=== PATIENT | female | born 1955 | race Hispanic/Latino ===

== ENCOUNTER 2021-11-12 10:21 | Observation (INO) | payer OTHER ==
[~2021-11-12] VITALS: Ht 152.4 cm; Wt 57.5 kg
[2021-11-12 11:10] LABS: APPEARANCE,URINE CLEAR (CLEAR); BILIRUBIN,URINE NEGATIVE (NEGATIVE); COLOR,URINE YELLOW (YELLOW); GLUCOSE, URINE (UA) >=1000 mg/dL (NEGATIVE); KETONES,URINE 40 mg/dL (NEGATIVE); LEUKOCYTE ESTERASE ,URINE NEGATIVE (NEGATIVE); NITRATE,URINE NEGATIVE (NEGATIVE); OCCULT BLOOD,URINE TRACE-INTACT (NEGATIVE); PH,URINE 5.5 (5.0-8.0); PROTEIN,URINE NEGATIVE (NEGATIVE); UROBILINOGEN,URINE 0.2 mg/dL (0.2-1.0)
[2021-11-12 11:13] LABS: BASOPHILS % (AUTO) 0.5 % (0.0-5.0); EOSINOPHILS % (AUTO) 0.5 % (0.0-8.0); HEMATOCRIT 42.2 % (36-48); LYMPHOCYTES % (AUTO) 25.7 % (21.0-51.0); MEAN CORPUSCULAR HEMOGLOBIN 28.7 pg (27.0-33.0); MEAN CORPUSCULAR HGB CONC 33.4 g/dL (32.0-36.0); MEAN CORPUSCULAR VOLUME 85.8 fL (79-99); MONOCYTES % (AUTO) 7.9 % (3.0-13.0); NEUTROPHILS % (AUTO) 65.1 % (40.0-77.0); PLATELET COUNT (AUTO) 201 K/uL (130-400); RED BLOOD CELL COUNT(AUTO) 4.92 MIL/uL (4.00-5.50); RED CELL DISTRIBUTION WIDTH 13.7 % (11.0-15.5); WHITE BLOOD COUNT (AUTO) 8.6 K/uL (4.8-10.8)
[2021-11-12 11:16] LABS: BACTERIA,URINE Rare /HPF (None Seen); RBC,URINE 0-1 /HPF (0-1); SQUAMOUS EPITHELIAL CELL,UR Rare /HPF (0-2); WBC,URINE 0-1 /HPF (0-1)
[2021-11-12 11:27] LABS: ALBUMIN 4.4 g/dL (3.5-5.0); CREATININE 0.8 mg/dL (0.5-1.5); POTASSIUM 3.5 mmol/L (3.5-5.1); TOTAL PROTEIN, SERUM 8.7 g/dL (6.0-8.3)
[2021-11-12] MEDS ORDERED: KETOROLAC 15MG/ML VIAL (15MG/ML) IV ONE (13:30)
[2021-11-12] MEDS ORDERED: 0.9% NACL 500ML IV.SOLN 500 ML IV ONE (13:30)
[2021-11-12] MEDS ORDERED: ONDANSETRON 4MG INJ IV PRN (14:30)
[2021-11-12] MEDS ORDERED: LACTULOSE 20 GM/30 ML UDCUP PO PRN (14:30)
[2021-11-12] MEDS ORDERED: ACETAMINOPHEN 325 MG TAB PO PRN ×2 (14:30)
[2021-11-12] MEDS ORDERED: GUAIFENESIN-DM 200/20 MG 10 ML PO PRN (14:30)
[2021-11-12] MEDS ORDERED: ACETAMINOPHEN 500 MG TABLET PO PRN (14:30)
[2021-11-12] MEDS ORDERED: HYDR12.54 PO (16:44)
[2021-11-12] MEDS ORDERED: EMPA25TA PO (16:44)
[2021-11-12] MEDS ORDERED: CALC-1009 PO (16:44)
[2021-11-12] MEDS ORDERED: GLIP10TA9 PO (16:44)
[2021-11-12] MEDS ORDERED: CARV3.12 PO (16:44)
[2021-11-12] MEDS ORDERED: SITA100T12 PO (16:44)
[2021-11-12] MEDS ORDERED: ROSU5TAB12 PO (16:44)
[2021-11-12] MEDS ORDERED: PANT40TA54 PO (16:44)
[2021-11-12 19:07] VITALS: BP 138/70
[2021-11-12] MEDS: FAMOTIDINE 20MG TAB PO SCH (21:08)
[2021-11-12] MEDS: ACETAMINOPHEN WITH CODEINE 1 TAB TAB PO PRN (21:11)
[2021-11-13 00:04] VITALS: BP 119/72
[2021-11-13] MEDS: MORPHINE 2 MG SYG IVP PRN ×2 (02:02→14:10)
[2021-11-13 04:17] VITALS: BP 118/70
[2021-11-13 05:23] LABS: BASOPHILS % (AUTO) 0.3 % (0.0-5.0); EOSINOPHILS % (AUTO) 0.2 % (0.0-8.0); HEMATOCRIT 38.1 % (36-48); LYMPHOCYTES % (AUTO) 11.7 % (21.0-51.0); MEAN CORPUSCULAR HEMOGLOBIN 28.5 pg (27.0-33.0); MEAN CORPUSCULAR HGB CONC 33.1 g/dL (32.0-36.0); MEAN CORPUSCULAR VOLUME 86.2 fL (79-99); MONOCYTES % (AUTO) 7.5 % (3.0-13.0); PLATELET COUNT (AUTO) 176 K/uL (130-400); RED BLOOD CELL COUNT(AUTO) 4.42 MIL/uL (4.00-5.50); RED CELL DISTRIBUTION WIDTH 13.7 % (11.0-15.5); WHITE BLOOD COUNT (AUTO) 10.4 K/uL (4.8-10.8)
[2021-11-13 05:43] LABS: ALBUMIN 3.8 g/dL (3.5-5.0); CREATININE 0.7 mg/dL (0.5-1.5); MAGNESIUM 1.9 mg/dL (1.80-2.40); POTASSIUM 3.8 mmol/L (3.5-5.1); TOTAL PROTEIN, SERUM 7.6 g/dL (6.0-8.3)
[2021-11-13 07:45] VITALS: BP 132/80
[2021-11-13] MEDS: FAMOTIDINE 20MG TAB PO SCH ×2 (09:11→21:21)
[2021-11-13] MEDS: ENOXAPARIN SODIUM 30 MG/0.3 ML SQ SCH (09:12)
[2021-11-13 11:54] VITALS: BP 140/59
[2021-11-13 16:55] VITALS: BP 141/74
[2021-11-13 20:00] VITALS: BP 119/64
[2021-11-14 00:26] VITALS: BP 112/63
[2021-11-14 04:08] VITALS: BP_SYST 109; BP_SYST 149; BP_DIAS 69; BP_DIAS 85
[2021-11-14 05:13] LABS: BASOPHILS % (AUTO) 0.5 % (0.0-5.0); EOSINOPHILS % (AUTO) 1.1 % (0.0-8.0); HEMATOCRIT 36.9 % (36-48); MEAN CORPUSCULAR HEMOGLOBIN 28.5 pg (27.0-33.0); MEAN CORPUSCULAR HGB CONC 33.1 g/dL (32.0-36.0); MEAN CORPUSCULAR VOLUME 86.2 fL (79-99); MONOCYTES % (AUTO) 10.9 % (3.0-13.0); NEUTROPHILS % (AUTO) 62.3 % (40.0-77.0); PLATELET COUNT (AUTO) 174 K/uL (130-400); RED BLOOD CELL COUNT(AUTO) 4.28 MIL/uL (4.00-5.50); RED CELL DISTRIBUTION WIDTH 13.8 % (11.0-15.5); WHITE BLOOD COUNT (AUTO) 8.4 K/uL (4.8-10.8)
[2021-11-14 05:40] LABS: ALBUMIN 3.4 g/dL (3.5-5.0); CREATININE 0.7 mg/dL (0.5-1.5); MAGNESIUM 1.8 mg/dL (1.80-2.40); POTASSIUM 3.3 mmol/L (3.5-5.1); TOTAL PROTEIN, SERUM 7.2 g/dL (6.0-8.3)
[2021-11-14] MEDS: ACETAMINOPHEN WITH CODEINE 1 TAB TAB PO PRN (05:59)
[2021-11-14 08:00] VITALS: BP 130/76
[2021-11-14] MEDS: FAMOTIDINE 20MG TAB PO SCH (09:20)
[2021-11-14] MEDS: ENOXAPARIN SODIUM 30 MG/0.3 ML SQ SCH (09:21)
[2021-11-14] MEDS ORDERED: LIDOCAINE HCL-MPF 1% 2ML VIAL IV PRN (09:30)
[2021-11-14] MEDS ORDERED: POTASSIUM CHLORIDE 10% ELIXIR 20 MEQ/15 ML UDCUP PO PRN (09:30)
[2021-11-14] MEDS ORDERED: POTASSIUM CHLORIDE 20MEQ/100ML 100 ML IV PRN (09:30)
[2021-11-14] MEDS: MORPHINE 2 MG SYG IVP PRN (09:34)
[2021-11-14] MEDS: KCL 20 MEQ ERTAB PO PRN ×2 (11:08→15:24)
[2021-11-14 12:00] VITALS: BP 120/71
[2021-11-14] MEDS ORDERED: ONDA22I PO (16:03)
[2021-11-14] MEDS ORDERED: LACT PO (16:25)
== END 2021-11-14 19:00 | disposition home or self-care (01) ==
LOC: EDH 10:21 → EDHIP 14:28 → 3CH 18:56
PROVIDERS: ADMIT Internal Medicine Critical Care Medicine; ATTEND Internal Medicine Critical Care Medicine
DX: D27.0 Benign neoplasm of right ovary (principal); I10 Essential (primary) hypertension; E11.9 Type 2 diabetes mellitus without complications; K29.70 Gastritis, unspecified, without bleeding; K59.00 Constipation, unspecified; E78.00 Pure hypercholesterolemia, unspecified; Z98.891 History of uterine scar from previous surgery; Z79.899 Other long term (current) drug therapy; Z98.890 Other specified postprocedural states
CPT/HCPCS: 96374; 99284; 80053 ×3; 83690; 85025 ×3; 81001; 36415 ×3; 71045; 74176; 84145; 96376 ×2; 96372 ×2; 96375; 83735 ×2; 76856; 97161; 82105; 86304; 82378; G0378 ×51; J7040; J1885; J1650 ×2

== ENCOUNTER 2022-01-13 14:29 | Inpatient (IN) | payer OTHER ==
[~2022-01-13] VITALS: Ht 152.4 cm; Wt 55.2 kg
[~2022-01-13 14:29] MED LIST: CALC-1009 PO; CARV3.12 PO; EMPA25TA PO; GLIP10TA9 PO; HYDR12.54 PO; LACT PO; ONDA22I PO; PANT40TA54 PO; ROSU5TAB12 PO; SITA100T12 PO
[2022-01-13 15:20] VITALS: BP 128/76
[2022-01-13] MEDS ORDERED: ONDANSETRON 4MG INJ IV PRN (17:30)
[2022-01-13] MEDS ORDERED: LACTULOSE 20 GM/30 ML UDCUP PO PRN (17:30)
[2022-01-13] MEDS ORDERED: MAG/ALUM/SIMETH 30 ML UDCUP PO PRN (17:30)
[2022-01-13] MEDS ORDERED: GLUCAGON 1MG KIT 1 MG ML IM PRN (17:30)
[2022-01-13] MEDS ORDERED: ACETAMINOPHEN 325 MG TAB PO PRN ×2 (17:30)
[2022-01-13] MEDS ORDERED: DEXTROSE 50%-WATER 50 ML DISP.SYRIN IV PRN (17:30)
[2022-01-13] MEDS: CLINDAMYCIN IVPB 600MG/50ML 50 ML IV SCH (17:45)
[2022-01-13] MEDS: CEFAZOLIN SODIUM 1 GM VIAL IVP SCH (17:45)
[2022-01-13 17:55] LABS: BASOPHILS % (AUTO) 0.2 % (0.0-5.0); EOSINOPHILS % (AUTO) 0.3 % (0.0-8.0); HEMATOCRIT 33.8 % (36-48); LYMPHOCYTES % (AUTO) 11.5 % (21.0-51.0); MEAN CORPUSCULAR HEMOGLOBIN 29.2 pg (27.0-33.0); MEAN CORPUSCULAR VOLUME 85.8 fL (79-99); MONOCYTES % (AUTO) 10.5 % (3.0-13.0); NEUTROPHILS % (AUTO) 77.1 % (40.0-77.0); PLATELET COUNT (AUTO) 238 K/uL (130-400); RED BLOOD CELL COUNT(AUTO) 3.94 MIL/uL (4.00-5.50); RED CELL DISTRIBUTION WIDTH 13.8 % (11.0-15.5); WHITE BLOOD COUNT (AUTO) 9.6 K/uL (4.8-10.8)
[2022-01-13 18:05] LABS: CREATININE 0.6 mg/dL (0.5-1.5); HEMOGLOBIN A1C 7.5 % (4.0-6.0); POTASSIUM 3.2 mmol/L (3.5-5.1)
[2022-01-13 18:10] LABS: ALBUMIN 2.6 g/dL (3.5-5.0); TOTAL PROTEIN, SERUM 7.3 g/dL (6.0-8.3)
[2022-01-13 18:46] LABS: APPEARANCE,URINE CLEAR (CLEAR); BILIRUBIN,URINE NEGATIVE (NEGATIVE); COLOR,URINE LIGHT-YELLOW (YELLOW); GLUCOSE, URINE (UA) >=1000 mg/dL (NEGATIVE); KETONES,URINE 150 mg/dL (NEGATIVE); LEUKOCYTE ESTERASE ,URINE 250 Leu/uL (NEGATIVE); NITRATE,URINE NEGATIVE (NEGATIVE); OCCULT BLOOD,URINE SMALL (NEGATIVE); PH,URINE 5.5 (5.0-8.0); PROTEIN,URINE NEGATIVE (NEGATIVE); UROBILINOGEN,URINE 0.2 mg/dL (0.2-1.0)
[2022-01-13 18:53] LABS: SQUAMOUS EPITHELIAL CELL,UR RARE /HPF (0-2); WBC,URINE 51-100 /HPF (0-1)
[2022-01-13] MEDS: INSULIN HUMULIN R 100 UNIT/ML 3ML SQ SCH (19:42)
[2022-01-13] MEDS: FAMOTIDINE 20MG TAB PO SCH (19:56)
[2022-01-13 20:07] VITALS: BP 118/66
[2022-01-13 23:06] VITALS: BP 122/70
[2022-01-14] MEDS: CLINDAMYCIN IVPB 600MG/50ML 50 ML IV SCH ×3 (01:33→16:16)
[2022-01-14] MEDS: CEFAZOLIN SODIUM 1 GM VIAL IVP SCH ×2 (01:33→08:19)
[2022-01-14 04:50] VITALS: BP 119/72
[2022-01-14] MEDS: ACETAMINOPHEN WITH CODEINE 1 TAB TAB PO PRN (06:03)
[2022-01-14] MEDS: INSULIN HUMULIN R 100 UNIT/ML 3ML SQ SCH ×4 (07:30→21:03)
[2022-01-14 08:00] VITALS: BP 99/74
[2022-01-14] MEDS: FAMOTIDINE 20MG TAB PO SCH (08:19)
[2022-01-14] MEDS ORDERED: MAGNESIUM 2GM PREMIX 50ML 50 ML IV PRN (08:30)
[2022-01-14 08:41] LABS: HEMATOCRIT 30.9 % (36-48); MEAN CORPUSCULAR HEMOGLOBIN 29.1 pg (27.0-33.0); MEAN CORPUSCULAR HGB CONC 33.7 g/dL (32.0-36.0); MEAN CORPUSCULAR VOLUME 86.6 fL (79-99); RED BLOOD CELL COUNT(AUTO) 3.57 MIL/uL (4.00-5.50); RED CELL DISTRIBUTION WIDTH 13.9 % (11.0-15.5)
[2022-01-14 08:50] LABS: CREATININE 0.5 mg/dL (0.5-1.5); POTASSIUM 3.2 mmol/L (3.5-5.1)
[2022-01-14] MEDS: KCL 20 MEQ ERTAB PO PRN (09:49)
[2022-01-14 11:56] VITALS: BP 116/68
[2022-01-14] MEDS: POTASSIUM CHLORIDE 10% ELIXIR 20 MEQ/15 ML UDCUP PO PRN ×2 (12:23→17:30)
[2022-01-14] MEDS ORDERED: PHARMACY COMMUNICATION MISC SCH (15:00)
[2022-01-14 16:00] VITALS: BP 112/64
[2022-01-14] MEDS ORDERED: 0.9% NACL 250ML 250 ML ONE (16:09)
[2022-01-14] MEDS: CEFEPIME HCL 2 GM VIAL IVP SCH ×2 (16:13→23:08)
[2022-01-14] MEDS: VANCOMYCIN 750MG VIAL IVPB SCH (16:18)
[2022-01-14] MEDS: HYDROMORPHONE 1 MG INJ IV PRN (19:29)
[2022-01-14 19:48] VITALS: BP 141/78
[2022-01-14 23:33] VITALS: BP 119/69
[2022-01-15] MEDS: CLINDAMYCIN IVPB 600MG/50ML 50 ML IV SCH ×3 (00:24→17:37)
[2022-01-15 03:36] VITALS: BP 108/68
[2022-01-15] MEDS ORDERED: 0.9% NACL 250ML 250 ML ONE (03:40)
[2022-01-15] MEDS: VANCOMYCIN 750MG VIAL IVPB SCH ×2 (04:01→17:37)
[2022-01-15] MEDS: CEFEPIME HCL 2 GM VIAL IVP SCH ×3 (06:21→23:34)
[2022-01-15] MEDS: ACETAMINOPHEN WITH CODEINE 1 TAB TAB PO PRN (06:31)
[2022-01-15] MEDS: INSULIN HUMULIN R 100 UNIT/ML 3ML SQ SCH ×4 (06:35→21:13)
[2022-01-15 07:00] VITALS: BP 124/63
[2022-01-15 08:44] LABS: HEMATOCRIT 34.3 % (36-48); MEAN CORPUSCULAR HGB CONC 32.9 g/dL (32.0-36.0); MEAN CORPUSCULAR VOLUME 87.9 fL (79-99); RED BLOOD CELL COUNT(AUTO) 3.9 MIL/uL (4.00-5.50); WHITE BLOOD COUNT (AUTO) 9.4 K/uL (4.8-10.8)
[2022-01-15] MEDS: FAMOTIDINE 20MG TAB PO SCH (09:01)
[2022-01-15 09:42] LABS: CREATININE 0.6 mg/dL (0.5-1.5); POTASSIUM 3.9 mmol/L (3.5-5.1)
[2022-01-15 11:00] VITALS: BP 111/60
[2022-01-15 15:00] VITALS: BP 126/65
[2022-01-15] MEDS: HYDROMORPHONE 1 MG INJ IV PRN (15:25)
[2022-01-15] MEDS ORDERED: IOHEXOL 350 MG/ML 100ML INFUS..BTL IV ONE (15:43)
[2022-01-15] MEDS: 0.9%NACL 1000ML 1,000 ML IV SCH (17:38)
[2022-01-15 19:30] VITALS: BP 112/66
[2022-01-15 23:54] VITALS: BP 115/63
[2022-01-16] MEDS: CLINDAMYCIN IVPB 600MG/50ML 50 ML IV SCH ×3 (01:21→16:38)
[2022-01-16 03:54] VITALS: BP 121/75
[2022-01-16] MEDS: VANCOMYCIN 750MG VIAL IVPB SCH (04:44)
[2022-01-16 05:30] LABS: BASOPHILS % (AUTO) 0.3 % (0.0-5.0); HEMATOCRIT 34.2 % (36-48); LYMPHOCYTES % (AUTO) 32.6 % (21.0-51.0); MEAN CORPUSCULAR HEMOGLOBIN 28.8 pg (27.0-33.0); MEAN CORPUSCULAR HGB CONC 32.5 g/dL (32.0-36.0); MEAN CORPUSCULAR VOLUME 88.6 fL (79-99); MONOCYTES % (AUTO) 12.3 % (3.0-13.0); NEUTROPHILS % (AUTO) 53.1 % (40.0-77.0); PLATELET COUNT (AUTO) 310 K/uL (130-400); RED BLOOD CELL COUNT(AUTO) 3.86 MIL/uL (4.00-5.50); WHITE BLOOD COUNT (AUTO) 6.8 K/uL (4.8-10.8)
[2022-01-16] MEDS: HYDROMORPHONE 1 MG INJ IV PRN ×3 (05:44→15:41)
[2022-01-16 05:50] LABS: ALBUMIN 2.4 g/dL (3.5-5.0); CREATININE 0.6 mg/dL (0.5-1.5); CRP QUANTITATIVE 33.5 mg/L (0.00-9.0)
[2022-01-16] MEDS: INSULIN HUMULIN R 100 UNIT/ML 3ML SQ SCH ×4 (06:34→20:38)
[2022-01-16] MEDS: CEFEPIME HCL 2 GM VIAL IVP SCH ×3 (06:53→23:18)
[2022-01-16 07:00] VITALS: BP 105/66
[2022-01-16] MEDS: PANTOPRAZOLE 40 MG TAB DR PO SCH (08:53)
[2022-01-16] MEDS: 0.9%NACL 1000ML 1,000 ML IV SCH (08:54)
[2022-01-16] MEDS ORDERED: ATORVASTATIN 10 MG TABLET PO SCH (09:00)
[2022-01-16 11:00] VITALS: BP 114/60
[2022-01-16 15:00] VITALS: BP 143/93
[2022-01-16] MEDS: VANCOMYCIN KIT 1 GM/250 ML IV.KIT IV SCH (18:23)
[2022-01-16 20:01] VITALS: BP 121/62
[2022-01-16] MEDS ORDERED: 0.9% NACL 250ML 250 ML ONE (20:23)
[2022-01-16 23:34] VITALS: BP 121/70
[2022-01-17] MEDS: 0.9%NACL 1000ML 1,000 ML IV SCH ×2 (00:09→15:42)
[2022-01-17] MEDS: HYDROMORPHONE 1 MG INJ IV PRN ×2 (01:13→15:05)
[2022-01-17] MEDS: CLINDAMYCIN IVPB 600MG/50ML 50 ML IV SCH ×3 (01:13→16:27)
[2022-01-17 03:53] VITALS: BP 115/65
[2022-01-17] MEDS ORDERED: 0.9% NACL 250ML 250 ML ONE (04:05)
[2022-01-17] MEDS: VANCOMYCIN KIT 1 GM/250 ML IV.KIT IV SCH (04:14)
[2022-01-17 05:19] LABS: BASOPHILS % (AUTO) 0.3 % (0.0-5.0); EOSINOPHILS % (AUTO) 0.8 % (0.0-8.0); HEMATOCRIT 31.8 % (36-48); LYMPHOCYTES % (AUTO) 25.6 % (21.0-51.0); MEAN CORPUSCULAR HEMOGLOBIN 28.6 pg (27.0-33.0); MEAN CORPUSCULAR HGB CONC 32.4 g/dL (32.0-36.0); MEAN CORPUSCULAR VOLUME 88.3 fL (79-99); MONOCYTES % (AUTO) 11.5 % (3.0-13.0); NEUTROPHILS % (AUTO) 61.1 % (40.0-77.0); PLATELET COUNT (AUTO) 310 K/uL (130-400); RED CELL DISTRIBUTION WIDTH 13.7 % (11.0-15.5); WHITE BLOOD COUNT (AUTO) 7.1 K/uL (4.8-10.8)
[2022-01-17 05:39] LABS: ALBUMIN 2.2 g/dL (3.5-5.0); CREATININE 0.6 mg/dL (0.5-1.5); POTASSIUM 3.9 mmol/L (3.5-5.1); TOTAL PROTEIN, SERUM 6.3 g/dL (6.0-8.3)
[2022-01-17] MEDS: INSULIN HUMULIN R 100 UNIT/ML 3ML SQ SCH ×4 (06:22→21:32)
[2022-01-17] MEDS: CEFEPIME HCL 2 GM VIAL IVP SCH (06:56)
[2022-01-17 08:00] VITALS: BP 130/67
[2022-01-17] MEDS: PANTOPRAZOLE 40 MG TAB DR PO SCH (09:39)
[2022-01-17 11:40] VITALS: BP 159/75
[2022-01-17] MEDS ORDERED: HEPARIN 5,000 UNIT VIAL ONE (14:45)
[2022-01-17 15:00] VITALS: BP 151/66
[2022-01-17] MEDS: CEFEPIME HCL 1 GM VIAL IVP SCH ×2 (15:04→22:45)
[2022-01-17] MEDS ORDERED: COMPOUND IV REFRIGERATED 1 EACH IVSOLN MISC PRN (16:30)
[2022-01-17 20:00] VITALS: BP 117/60
[2022-01-17] MEDS: VANCOMYCIN 1.25GM/NS 250ML IVPB SCH ×2 (20:12)
[2022-01-17] MEDS: CARVEDILOL 3.125 MG TABLET PO SCH (20:12)
[2022-01-17] MEDS: ACETAMINOPHEN WITH CODEINE 1 TAB TAB PO PRN (20:19)
[2022-01-18] VITALS (14 sets, daily range): BP systolic 89–179; BP diastolic 58–96
[2022-01-18] MEDS: CLINDAMYCIN IVPB 600MG/50ML 50 ML IV SCH ×3 (00:34→17:09)
[2022-01-18] MEDS: CEFEPIME HCL 1 GM VIAL IVP SCH ×3 (04:56→22:50)
[2022-01-18] MEDS: ACETAMINOPHEN WITH CODEINE 1 TAB TAB PO PRN (04:56)
[2022-01-18] MEDS: CARVEDILOL 3.125 MG TABLET PO SCH ×2 (04:56→20:40)
[2022-01-18 05:32] LABS: PROTHROMBIN TIME 10.9 SEC (9.6-11.6)
[2022-01-18 05:33] LABS: PARTIAL THROMBOPLASTIN TIME 25.1 SEC (26.3-35.5)
[2022-01-18] MEDS: INSULIN HUMULIN R 100 UNIT/ML 3ML SQ SCH ×4 (05:58→21:42)
[2022-01-18] MEDS: VANCOMYCIN 1.25GM/NS 250ML IVPB SCH ×4 (09:30→20:39)
[2022-01-18] MEDS: PANTOPRAZOLE 40 MG TAB DR PO SCH (09:30)
[2022-01-18] MEDS ORDERED: FENTANYL CITRATE PF 50 MCG/1 ML 2ML VIAL ONE (14:12)
[2022-01-18] MEDS ORDERED: MIDAZOLAM HCL 1 MG/ML 2ML VIAL ONE (14:12)
[2022-01-18] MEDS: HYDROMORPHONE 1 MG INJ IV PRN (16:01)
[2022-01-18 16:10] LABS: ALBUMIN 2.7 g/dL (3.5-5.0); CREATININE 0.6 mg/dL (0.5-1.5); POTASSIUM 3.3 mmol/L (3.5-5.1); TOTAL PROTEIN, SERUM 7.1 g/dL (6.0-8.3)
[2022-01-19] MEDS: CLINDAMYCIN IVPB 600MG/50ML 50 ML IV SCH ×3 (02:32→16:17)
[2022-01-19 03:36] VITALS: BP 102/63
[2022-01-19 04:50] LABS: HEMATOCRIT 29.1 % (36-48); MEAN CORPUSCULAR HEMOGLOBIN 29.3 pg (27.0-33.0); MEAN CORPUSCULAR HGB CONC 33.7 g/dL (32.0-36.0); MEAN CORPUSCULAR VOLUME 87.1 fL (79-99); RED BLOOD CELL COUNT(AUTO) 3.34 MIL/uL (4.00-5.50)
[2022-01-19 05:17] LABS: ALBUMIN 2.4 g/dL (3.5-5.0); POTASSIUM 3.7 mmol/L (3.5-5.1); TOTAL PROTEIN, SERUM 6.5 g/dL (6.0-8.3)
[2022-01-19] MEDS: CEFEPIME HCL 1 GM VIAL IVP SCH ×3 (06:01→22:19)
[2022-01-19] MEDS: INSULIN HUMULIN R 100 UNIT/ML 3ML SQ SCH ×4 (06:13→20:02)
[2022-01-19] MEDS: ACETAMINOPHEN WITH CODEINE 1 TAB TAB PO PRN ×2 (06:15→17:02)
[2022-01-19 08:00] VITALS: BP 109/66
[2022-01-19 08:35] LABS: BASOPHILS % (AUTO) 0.3 % (0.0-5.0); EOSINOPHILS % (AUTO) 0.4 % (0.0-8.0); HEMATOCRIT 32.2 % (36-48); LYMPHOCYTES % (AUTO) 8.1 % (21.0-51.0); MEAN CORPUSCULAR HEMOGLOBIN 29.3 pg (27.0-33.0); MEAN CORPUSCULAR HGB CONC 33.5 g/dL (32.0-36.0); MEAN CORPUSCULAR VOLUME 87.5 fL (79-99); MONOCYTES % (AUTO) 5.2 % (3.0-13.0); NEUTROPHILS % (AUTO) 85.4 % (40.0-77.0); PLATELET COUNT (AUTO) 367 K/uL (130-400); RED BLOOD CELL COUNT(AUTO) 3.68 MIL/uL (4.00-5.50); RED CELL DISTRIBUTION WIDTH 14.1 % (11.0-15.5); WHITE BLOOD COUNT (AUTO) 20.4 K/uL (4.8-10.8)
[2022-01-19] MEDS: HYDROCHLOROTHIAZIDE 25 MG TABLET PO SCH (09:23)
[2022-01-19] MEDS: PANTOPRAZOLE 40 MG TAB DR PO SCH (09:23)
[2022-01-19] MEDS: CARVEDILOL 3.125 MG TABLET PO SCH ×2 (09:24→19:35)
[2022-01-19] MEDS: VANCOMYCIN 1.25GM/NS 250ML IVPB SCH ×4 (09:32→19:35)
[2022-01-19 12:00] VITALS: BP 109/99
[2022-01-19 16:00] VITALS: BP 111/62
[2022-01-19 20:27] VITALS: BP 101/59
[2022-01-20 00:23] VITALS: BP 126/68
[2022-01-20] MEDS: CLINDAMYCIN IVPB 600MG/50ML 50 ML IV SCH ×3 (01:20→17:10)
[2022-01-20 04:26] VITALS: BP 121/57
[2022-01-20] MEDS: CEFEPIME HCL 1 GM VIAL IVP SCH ×3 (05:23→22:13)
[2022-01-20 05:32] LABS: BASOPHILS % (AUTO) 0.4 % (0.0-5.0); EOSINOPHILS % (AUTO) 0.8 % (0.0-8.0); HEMATOCRIT 31.4 % (36-48); LYMPHOCYTES % (AUTO) 14.8 % (21.0-51.0); MEAN CORPUSCULAR HEMOGLOBIN 28.8 pg (27.0-33.0); MEAN CORPUSCULAR HGB CONC 33.1 g/dL (32.0-36.0); MONOCYTES % (AUTO) 10.1 % (3.0-13.0); NEUTROPHILS % (AUTO) 73.3 % (40.0-77.0); PLATELET COUNT (AUTO) 377 K/uL (130-400); RED BLOOD CELL COUNT(AUTO) 3.61 MIL/uL (4.00-5.50); RED CELL DISTRIBUTION WIDTH 14.2 % (11.0-15.5); WHITE BLOOD COUNT (AUTO) 10.4 K/uL (4.8-10.8)
[2022-01-20 05:48] LABS: ALBUMIN 2.5 g/dL (3.5-5.0); CREATININE 0.9 mg/dL (0.5-1.5); POTASSIUM 3.5 mmol/L (3.5-5.1); TOTAL PROTEIN, SERUM 6.8 g/dL (6.0-8.3)
[2022-01-20] MEDS: INSULIN HUMULIN R 100 UNIT/ML 3ML SQ SCH ×4 (06:18→20:32)
[2022-01-20 08:00] VITALS: BP 119/69
[2022-01-20] MEDS ORDERED: COMPOUND IV REFRIGERATED 1 EACH IVSOLN MISC PRN (09:00)
[2022-01-20] MEDS: PANTOPRAZOLE 40 MG TAB DR PO SCH (09:21)
[2022-01-20] MEDS: HYDROCHLOROTHIAZIDE 25 MG TABLET PO SCH (09:22)
[2022-01-20] MEDS: CARVEDILOL 3.125 MG TABLET PO SCH ×2 (09:22→20:12)
[2022-01-20] MEDS: VANCOMYCIN 1.25GM/NS 250ML IVPB SCH ×4 (09:23→20:13)
[2022-01-20] MEDS: MORPHINE 2 MG SYG IVP PRN ×2 (09:24→18:35)
[2022-01-20] MEDS ORDERED: ACETAMINOPHEN WITH CODEINE 1 TAB TAB PO PRN (11:00)
[2022-01-20 12:00] VITALS: BP 114/72
[2022-01-20 16:00] VITALS: BP 106/63
[2022-01-20 19:53] LABS: INR 0.99 (0.85-1.15); PROTHROMBIN TIME 10.8 SEC (9.6-11.6)
[2022-01-20 20:36] VITALS: BP 94/49
[2022-01-21] MEDS: CLINDAMYCIN IVPB 600MG/50ML 50 ML IV SCH ×3 (00:09→16:50)
[2022-01-21 00:18] VITALS: BP 96/57
[2022-01-21 04:18] LABS: HEMATOCRIT 30.9 % (36-48); MEAN CORPUSCULAR HEMOGLOBIN 28.9 pg (27.0-33.0); MEAN CORPUSCULAR HGB CONC 33.7 g/dL (32.0-36.0); MEAN CORPUSCULAR VOLUME 85.8 fL (79-99); RED BLOOD CELL COUNT(AUTO) 3.6 MIL/uL (4.00-5.50); RED CELL DISTRIBUTION WIDTH 13.9 % (11.0-15.5); WHITE BLOOD COUNT (AUTO) 8.4 K/uL (4.8-10.8)
[2022-01-21 04:47] LABS: CREATININE 0.9 mg/dL (0.5-1.5); POTASSIUM 3.2 mmol/L (3.5-5.1)
[2022-01-21 04:57] VITALS: BP 115/67
[2022-01-21] MEDS: CEFEPIME HCL 1 GM VIAL IVP SCH ×3 (04:57→22:35)
[2022-01-21] MEDS: KCL 20 MEQ ERTAB PO PRN ×3 (04:57→11:32)
[2022-01-21] MEDS: INSULIN HUMULIN R 100 UNIT/ML 3ML SQ SCH ×4 (05:34→22:33)
[2022-01-21 07:30] VITALS: BP 118/58
[2022-01-21] MEDS: HYDROCHLOROTHIAZIDE 25 MG TABLET PO SCH (08:31)
[2022-01-21] MEDS: PANTOPRAZOLE 40 MG TAB DR PO SCH (08:31)
[2022-01-21] MEDS: CARVEDILOL 3.125 MG TABLET PO SCH ×2 (08:32→21:00)
[2022-01-21] MEDS: ACETAMINOPHEN WITH CODEINE 1 TAB TAB PO PRN ×2 (08:36→18:13)
[2022-01-21] MEDS: VANCOMYCIN 1.25GM/NS 250ML IVPB SCH ×2 (08:46)
[2022-01-21 11:00] VITALS: BP 112/61
[2022-01-21 16:00] VITALS: BP 102/57
[2022-01-21 20:00] VITALS: BP 104/52
[2022-01-22] VITALS: BP 105/53
[2022-01-22] MEDS: CLINDAMYCIN IVPB 600MG/50ML 50 ML IV SCH ×3 (01:12→17:07)
[2022-01-22 04:00] VITALS: BP 108/57
[2022-01-22 04:55] LABS: HEMATOCRIT 30.8 % (36-48); MEAN CORPUSCULAR HEMOGLOBIN 28.8 pg (27.0-33.0); MEAN CORPUSCULAR HGB CONC 33.1 g/dL (32.0-36.0); RED BLOOD CELL COUNT(AUTO) 3.54 MIL/uL (4.00-5.50); RED CELL DISTRIBUTION WIDTH 14.1 % (11.0-15.5); WHITE BLOOD COUNT (AUTO) 5.4 K/uL (4.8-10.8)
[2022-01-22 05:07] LABS: CREATININE 0.8 mg/dL (0.5-1.5); POTASSIUM 3.2 mmol/L (3.5-5.1)
[2022-01-22] MEDS: CEFEPIME HCL 1 GM VIAL IVP SCH ×3 (06:12→22:22)
[2022-01-22] MEDS: VANCOMYCIN 1G/250ML KIT 250 ML IV SCH ×2 (06:12→17:44)
[2022-01-22] MEDS: INSULIN HUMULIN R 100 UNIT/ML 3ML SQ SCH ×4 (06:34→20:29)
[2022-01-22 07:30] VITALS: BP 116/60
[2022-01-22] MEDS ORDERED: KCL 20 MEQ ERTAB PO SCH (08:30)
[2022-01-22] MEDS: ACETAMINOPHEN WITH CODEINE 1 TAB TAB PO PRN ×2 (08:47→17:07)
[2022-01-22] MEDS: HYDROCHLOROTHIAZIDE 25 MG TABLET PO SCH (08:47)
[2022-01-22] MEDS: PANTOPRAZOLE 40 MG TAB DR PO SCH (08:48)
[2022-01-22] MEDS: CARVEDILOL 3.125 MG TABLET PO SCH ×2 (08:48→20:27)
[2022-01-22 10:45] VITALS: BP 115/56
[2022-01-22 16:05] VITALS: BP 121/63
[2022-01-22 20:00] VITALS: BP 140/68
[2022-01-23] VITALS (7 sets, daily range): BP systolic 129–156; BP diastolic 65–106
[2022-01-23] MEDS: CLINDAMYCIN IVPB 600MG/50ML 50 ML IV SCH ×3 (01:22→17:24)
[2022-01-23] MEDS: CEFEPIME HCL 1 GM VIAL IVP SCH ×3 (06:12→22:45)
[2022-01-23] MEDS: VANCOMYCIN 1G/250ML KIT 250 ML IV SCH ×2 (06:14→18:37)
[2022-01-23] MEDS: INSULIN HUMULIN R 100 UNIT/ML 3ML SQ SCH ×4 (06:32→20:45)
[2022-01-23] MEDS: PANTOPRAZOLE 40 MG TAB DR PO SCH (08:58)
[2022-01-23] MEDS: CARVEDILOL 3.125 MG TABLET PO SCH ×2 (08:59→20:46)
[2022-01-23] MEDS: HYDROCHLOROTHIAZIDE 25 MG TABLET PO SCH (08:59)
[2022-01-23] MEDS: ACETAMINOPHEN WITH CODEINE 1 TAB TAB PO PRN (11:08)
[2022-01-24] MEDS: CLINDAMYCIN IVPB 600MG/50ML 50 ML IV SCH ×2 (01:19→09:11)
[2022-01-24 03:55] VITALS: BP 140/76
[2022-01-24] MEDS: VANCOMYCIN 1G/250ML KIT 250 ML IV SCH (05:31)
[2022-01-24] MEDS: CEFEPIME HCL 1 GM VIAL IVP SCH ×2 (06:25→14:23)
[2022-01-24] MEDS: INSULIN HUMULIN R 100 UNIT/ML 3ML SQ SCH ×2 (06:41→11:20)
[2022-01-24 08:00] VITALS: BP 158/79
[2022-01-24] MEDS: HYDROCHLOROTHIAZIDE 25 MG TABLET PO SCH (09:12)
[2022-01-24] MEDS: CARVEDILOL 3.125 MG TABLET PO SCH (09:12)
[2022-01-24] MEDS: PANTOPRAZOLE 40 MG TAB DR PO SCH (09:12)
[2022-01-24] MEDS: ACETAMINOPHEN WITH CODEINE 1 TAB TAB PO PRN (09:14)
[2022-01-24 09:57] LABS: CREATININE 0.7 mg/dL (0.5-1.5); MAGNESIUM 1.7 mg/dL (1.80-2.40); POTASSIUM 3.1 mmol/L (3.5-5.1)
[2022-01-24] MEDS: KCL 20 MEQ ERTAB PO PRN ×2 (11:23→14:24)
[2022-01-24 12:00] VITALS: BP 123/70
== END 2022-01-24 16:30 | DRG 853 ==
LOC: EDH 14:29 → OBSVTOIN 15:09 → INTOOBSV 15:09 → EDHIP 15:09 → 3AH 15:20 → 4CH 01-19 08:20
PROVIDERS: ADMIT Hospitalist; ATTEND Hospitalist
PROC: 0W9J40Z Drainage of Pelvic Cavity with Drainage Device, Percutaneous Endoscopic Approach (ICD-10-PCS; principal; 2022-01-18)
DX: A41.9 Sepsis, unspecified organism (principal); K65.1 Peritoneal abscess; T81.43XA Infection following a procedure, organ and space surgical site, initial encounter; E44.1 Mild protein-calorie malnutrition; L03.311 Cellulitis of abdominal wall; L02.211 Cutaneous abscess of abdominal wall; N39.0 Urinary tract infection, site not specified; T81.30XA Disruption of wound, unspecified, initial encounter; E11.9 Type 2 diabetes mellitus without complications; I10 Essential (primary) hypertension; Z20.822 Contact with and (suspected) exposure to COVID-19; E78.5 Hyperlipidemia, unspecified; K29.70 Gastritis, unspecified, without bleeding; E87.6 Hypokalemia; D64.9 Anemia, unspecified; N73.9 Female pelvic inflammatory disease, unspecified; E66.9 Obesity, unspecified; Y83.8 Other surgical procedures as the cause of abnormal reaction of the patient, or of later complication, without mention of misadventure at the time of the procedure; K83.8 Other specified diseases of biliary tract; R53.81 Other malaise; Z68.23 Body mass index [BMI] 23.0-23.9, adult; Z82.49 Family history of ischemic heart disease and other diseases of the circulatory system; Z83.3 Family history of diabetes mellitus; Z90.710 Acquired absence of both cervix and uterus; Y92.89 Other specified places as the place of occurrence of the external cause; Z79.4 Long term (current) use of insulin; Z79.899 Other long term (current) drug therapy
CPT/HCPCS: 36415; 74176; 74177; 74181; 75989; 76705; 77012; 80048; 80053; 80202; 81001; 82948; 83036; 83735; 84145; 85025; 85027; 85610; 85651; 85730; 86140; 87040; 87070; 87071; 87077; 87088; 87186; 87205; 87635; 97039; 99152; C1894; G0378; J0690; J0692; J1170; J1644; J1815; J2250; J2405; J3010; J3370; J3475; J3490; J7050; Q9967

== ENCOUNTER 2022-02-05 07:44 | Day surgery (SDC) | payer OTHER ==
[~2022-02-05] VITALS: Ht 152.4 cm; Wt 59.0 kg
[~2022-02-05 07:44] MED LIST changes: -SITA100T12 PO
[2022-02-05 08:50] VITALS: BP 127/59
[2022-02-05] MEDS ORDERED: 0.9%NACL 1000ML 1,000 ML IV ONE (09:32)
[2022-02-05 10:01] LABS: HEMATOCRIT 31.9 % (36-48); MEAN CORPUSCULAR HEMOGLOBIN 28.8 pg (27.0-33.0); MEAN CORPUSCULAR HGB CONC 32.9 g/dL (32.0-36.0); MEAN CORPUSCULAR VOLUME 87.6 fL (79-99); PLATELET COUNT (AUTO) 233 K/uL (130-400); RED BLOOD CELL COUNT(AUTO) 3.64 MIL/uL (4.00-5.50); RED CELL DISTRIBUTION WIDTH 14.4 % (11.0-15.5); WHITE BLOOD COUNT (AUTO) 7.8 K/uL (4.8-10.8)
[2022-02-05 10:08] LABS: CREATININE 0.6 mg/dL (0.5-1.5); POTASSIUM 3.4 mmol/L (3.5-5.1)
[2022-02-05 10:11] LABS: PROTHROMBIN TIME 10.9 SEC (9.6-11.6)
[2022-02-05 10:13] LABS: PARTIAL THROMBOPLASTIN TIME 26.5 SEC (26.3-35.5)
[2022-02-05 11:23] LABS: BAND NEUTROPHILS % (MANUAL) 10 % (0-2); EOSINOPHILS % (MANUAL) 2 % (1-6); LYMPHOCYTES % (MANUAL) 11 % (22-44); MONOCYTES % (MANUAL) 6 % (2-9); SEGMENTED NEUTROPHILS % 71 % (40-70)
[2022-02-05 11:24] LABS: MAN.DIFF COMMENT-IMPRESSION MANUAL DIFFERENTIAL; PLATELET MORPHOLOGY COMMENT ADEQUATE
[2022-02-05] MEDS ORDERED: IODIXANOL 320 MG/ML 100 ML VIAL ONE (14:54)
[2022-02-05 16:05] VITALS: BP 135/80
== END 2022-02-05 16:30 | disposition home or self-care (01) ==
LOC: DAH 07:44
PROVIDERS: ATTEND Internal Medicine Infectious Disease
DX: N73.8 Other specified female pelvic inflammatory diseases (principal); L03.311 Cellulitis of abdominal wall; I10 Essential (primary) hypertension; E11.9 Type 2 diabetes mellitus without complications; E78.5 Hyperlipidemia, unspecified; Z79.899 Other long term (current) drug therapy; Z79.01 Long term (current) use of anticoagulants; Z98.891 History of uterine scar from previous surgery; Z90.710 Acquired absence of both cervix and uterus
CPT/HCPCS: 76080; 49424; 80048; 85025; 85610; 85730; 82948 ×2; 36415; A4663; J7030; J1644; Q9967; A4215; A4223; A4222; A4221

== ENCOUNTER 2022-02-17 07:44 | Day surgery (SDC) | payer OTHER ==
[~2022-02-17] VITALS: Ht 152.4 cm; Wt 59.0 kg
[2022-02-17 07:55] VITALS: BP 134/75
[2022-02-17 08:15] LABS: BASOPHILS % (AUTO) 0.6 % (0.0-5.0); HEMATOCRIT 29.3 % (36-48); LYMPHOCYTES % (AUTO) 11.8 % (21.0-51.0); MEAN CORPUSCULAR HEMOGLOBIN 28.3 pg (27.0-33.0); MEAN CORPUSCULAR HGB CONC 32.4 g/dL (32.0-36.0); MEAN CORPUSCULAR VOLUME 87.2 fL (79-99); MONOCYTES % (AUTO) 8.8 % (3.0-13.0); NEUTROPHILS % (AUTO) 77.2 % (40.0-77.0); PLATELET COUNT (AUTO) 314 K/uL (130-400); RED BLOOD CELL COUNT(AUTO) 3.36 MIL/uL (4.00-5.50); RED CELL DISTRIBUTION WIDTH 13.8 % (11.0-15.5); WHITE BLOOD COUNT (AUTO) 8.7 K/uL (4.8-10.8)
[2022-02-17 08:31] LABS: CREATININE 0.5 mg/dL (0.5-1.5)
[2022-02-17 08:32] LABS: POTASSIUM 2.6 mmol/L (3.5-5.1)
[2022-02-17 08:35] LABS: INR 1.05 (0.85-1.15); PROTHROMBIN TIME 11.4 SEC (9.6-11.6)
[2022-02-17 08:36] LABS: PARTIAL THROMBOPLASTIN TIME 24.6 SEC (26.3-35.5)
[2022-02-17] MEDS ORDERED: 0.9%NACL 1000ML 1,000 ML IV ONE (10:42)
[2022-02-17] MEDS ORDERED: IOHEXOL-350 50ML VIAL IV ONE (11:25)
[2022-02-17 11:54] VITALS: BP 120/64
[2022-02-17 12:10] VITALS: BP 125/63
[2022-02-17 12:25] VITALS: BP 125/68
[2022-02-17 12:40] VITALS: BP 118/67
[2022-02-17 13:10] VITALS: BP 105/57
== END 2022-02-17 13:15 | disposition home or self-care (01) ==
LOC: DAH 07:44
PROVIDERS: ATTEND Internal Medicine Infectious Disease
DX: L02.211 Cutaneous abscess of abdominal wall (principal); K63.2 Fistula of intestine; I10 Essential (primary) hypertension; E11.9 Type 2 diabetes mellitus without complications; Z98.890 Other specified postprocedural states; Z79.01 Long term (current) use of anticoagulants
CPT/HCPCS: 76080; 80048; 85025; 85610; 85730; 36415; 49424; A4663; J7030; Q9967; A4223; A4222; A4216

== ENCOUNTER → 2022-02-24 | Outpatient (CLI) | payer OTHER ==
[~2022-02-24] MED LIST changes: +IOHEXOL 350 MG/ML 100ML INFUS..BTL IV ONE
== END | disposition home or self-care (01) ==
LOC: RAH 08:11
PROVIDERS: ATTEND Internal Medicine Infectious Disease
DX: K76.0 Fatty (change of) liver, not elsewhere classified (principal); M47.899 Other spondylosis, site unspecified; R10.9 Unspecified abdominal pain; Z90.49 Acquired absence of other specified parts of digestive tract
CPT/HCPCS: 74178; Q9967

== ENCOUNTER 2022-03-04 06:30 | Day surgery (SDC) | payer OTHER ==
[~2022-03-04 06:30] MED LIST changes: -IOHEXOL 350 MG/ML 100ML INFUS..BTL IV ONE
[2022-03-04] MEDS ORDERED: LIDOCAINE HCL 1% 20 ML VIAL ONE (07:09)
[2022-03-04] MEDS ORDERED: IODIXANOL 320 MG/ML 100 ML VIAL ONE (07:09)
[2022-03-04 07:10] VITALS: BP 128/76
[2022-03-04 07:22] LABS: BASOPHILS % (AUTO) 0.4 % (0.0-5.0); EOSINOPHILS % (AUTO) 0.9 % (0.0-8.0); HEMATOCRIT 25.5 % (36-48); LYMPHOCYTES % (AUTO) 11.8 % (21.0-51.0); MEAN CORPUSCULAR HEMOGLOBIN 27.5 pg (27.0-33.0); MEAN CORPUSCULAR HGB CONC 32.9 g/dL (32.0-36.0); MEAN CORPUSCULAR VOLUME 83.6 fL (79-99); MONOCYTES % (AUTO) 13.3 % (3.0-13.0); NEUTROPHILS % (AUTO) 72.9 % (40.0-77.0); PLATELET COUNT (AUTO) 196 K/uL (130-400); RED BLOOD CELL COUNT(AUTO) 3.05 MIL/uL (4.00-5.50); RED CELL DISTRIBUTION WIDTH 14.8 % (11.0-15.5); WHITE BLOOD COUNT (AUTO) 5.3 K/uL (4.8-10.8)
[2022-03-04 07:30] LABS: CREATININE 0.4 mg/dL (0.5-1.5); POTASSIUM 3.4 mmol/L (3.5-5.1)
[2022-03-04] MEDS ORDERED: MIDAZOLAM HCL 1 MG/ML 2ML VIAL ONE (07:55)
[2022-03-04] MEDS ORDERED: FENTANYL CITRATE PF 50 MCG/1 ML 2ML VIAL ONE (07:56)
[2022-03-04 07:57] LABS: INR 1.05 (0.85-1.15); PROTHROMBIN TIME 11.4 SEC (9.6-11.6)
[2022-03-04 07:58] LABS: PARTIAL THROMBOPLASTIN TIME 22.5 SEC (26.3-35.5)
[2022-03-04 08:30] VITALS: BP 140/74
[2022-03-04 08:45] VITALS: BP 115/66
[2022-03-04 09:00] VITALS: BP 115/70
[2022-03-04 09:15] VITALS: BP 122/69
[2022-03-04 09:35] VITALS: BP 112/68
[2022-03-04] MEDS ORDERED: 0.9%NACL 1000ML 1,000 ML IV ONE (09:46)
== END 2022-03-04 09:35 | disposition home or self-care (01) ==
LOC: DAH 06:30
PROVIDERS: ATTEND Internal Medicine Infectious Disease
DX: L03.311 Cellulitis of abdominal wall (principal); Z20.822 Contact with and (suspected) exposure to COVID-19; I10 Essential (primary) hypertension; E11.9 Type 2 diabetes mellitus without complications; E78.5 Hyperlipidemia, unspecified; Z88.8 Allergy status to other drugs, medicaments and biological substances; Z79.899 Other long term (current) drug therapy; Z79.01 Long term (current) use of anticoagulants
CPT/HCPCS: 76080; 49424; 80048; 85025; 85610; 85730; 36415; C1769 ×2; C1729; A4663; J3010; J7030; J2250; J1644; Q9967; A4223; A4657; A4222; A4216; 99156

== ENCOUNTER → 2022-09-02 | Outpatient (CLI) | payer OTHER | END | disposition home or self-care (01) | LOC: RAH 12:37 | PROVIDERS: ATTEND Internal Medicine | DX: Z12.31 Encounter for screening mammogram for malignant neoplasm of breast (principal) | CPT/HCPCS: 77067 ==

== ENCOUNTER → 2024-05-24 | Outpatient (CLI) | payer OTHER ==
[~2024-05-24] MED LIST changes: +GADOTERATE MEGLUMINE 10 MMOL/20 ML VIAL IV ONE; +GLIP10TA16 PO; -GLIP10TA9 PO; -ROSU5TAB12 PO; +ROSU5TAB51 PO
--- NOTE | 2024-05-24 13:25 | HMCIMG ---
Exam Type: MR SHOULDER RIGHT O Clinical Information: R52 Pain, unspecified Comparison: None Technique: The examination is done with sagittal T1 and inversion recovery sequences, axial GRE sequence and coronal inversion recovery, proton density and T2 weighted [id number] sequences. FINDINGS: There is a full-thickness tear of the rotator cuff tendon supraspinatus component without retraction. Associated cystic degenerative changes of the rotator cuff tendon humeral head insertion are seen. There is fluid within the subacromial subdeltoid bursa complex. The acromioclavicular joint is hypertrophic. This may cause impingement of the rotator cuff tendon. The coracoclavicular and coracohumeral ligaments are intact. The biceps anchor is well seen, without significant tears. The biceps tendon runs in the bicipital groove without significant high signal intensity to suggest sprain. No displacement is seen from the groove itself. The structures of the labrum are intact; specifically, there is no evidence of SLAP tear. No significant abnormalities of the posterior, inferior, or inferior labral structures are seen either. No paralabral cysts are seen. The superior, middle, and inferior glenohumeral ligaments are intact. Glenohumeral joint cartilage is preserved. There is no evidence of chondromalacia. No loose intra-articular chondroid bodies are identified. The osseous structures of the shoulder joint to include the visualized segments of humeral head, neck, and shaft as well as the glenoid bone itself, the acromion, the coracoid, portions of the scapula and the distal portion of the clavicle are intact. The supraglenoid notch is clear without evidence of space occupying lesions or tumor. The structures of the joint capsule are preserved. The limited examination of the deltoid and the limited visualized portions of the pectoralis major are intact. IMPRESSION: 1. HYPERTROPHIC ACROMIOCLAVICULAR JOINT, WHICH MAY CAUSE IMPINGEMENT OF THE ROTATOR CUFF TENDON. 2. ROTATOR CUFF TENDON TEAR.
== END | disposition home or self-care (01) ==
LOC: RAH 10:42
PROVIDERS: ATTEND Internal Medicine
DX: M75.101 Unspecified rotator cuff tear or rupture of right shoulder, not specified as traumatic (principal); M19.011 Primary osteoarthritis, right shoulder; M25.511 Pain in right shoulder
CPT/HCPCS: 73223; A9575